=== PATIENT | female | born 1995 | race Caucasian/White ===

== ENCOUNTER → 2021-03-06 10:12 | Outpatient (CLI) | payer OTHER, SELFPAY ==
--- NOTE | 2021-03-06 | DI.US.S_ITS ---
PROCEDURE: US PELVIC COMPLETE INDICATIONS: BLEEDING 12 DAYS POST TECHNIQUE: Real-time scanning was performed of the pelvic organs, with image documentation. Additional endovaginal scanning was necessary due to incomplete visualization of the adnexal and endometrial structures by transabdominal scanning. COMPARISON: None. FINDINGS: Uterus: The uterus measures 10.1 x 7.0 x 8.5 centimeters. The endometrium is heterogenous with a 3.2 x 2.4 x 1.4 centimeter echogenic focus of tissue with internal vascularity seen within the endometrium, probable retained products of conception. Ovaries: The right ovary is normal measuring 1.9 x 1.8 x 1.4 centimeters. The left ovary is not seen. Other: No pathologic free abdominal or pelvic fluid. IMPRESSION: Findings are consistent with retained products of conception. Dictated by: Nikunj Lee M.D. on 03/06/2021 at 12:04 Approved by: Nikunj Lee M.D. on 03/06/2021 at 12:06
== END ==
PROVIDERS: PCP Midwife; Referring Provider Midwife; Visit Provider Midwife
DX: O72.1 Other immediate postpartum hemorrhage (principal)
CPT/HCPCS: 76830; 76856